=== PATIENT | male | born 1995 | race Asian ===

== ENCOUNTER 2017-05-15 20:14 | Emergency (ER) | payer OTHER ==
[~2017-05-15] VITALS: Ht 180.3 cm; Wt 127.3 kg
[2017-05-15 20:18] VITALS: BP 142/78; TEMP 98.5
[2017-05-15 22:15] VITALS: PULSE 93
== END 2017-05-15 22:15 | disposition home or self-care (01) ==
LOC: COL.ER 20:14
DX: S96.912A Strain of unspecified muscle and tendon at ankle and foot level, left foot, initial encounter (principal); X50.0XXA Overexertion from strenuous movement or load, initial encounter

== ENCOUNTER 2017-10-15 07:17 | Emergency (ER) | payer OTHER ==
[~2017-10-15] VITALS: Ht 180.3 cm; Wt 122.7 kg
[2017-10-15 07:28] VITALS: BP 142/93; TEMP 100.2
[2017-10-15] MEDS ORDERED: ZITHROMAX Z PA250 MG PO (08:12)
[2017-10-15 08:27] VITALS: PULSE 98
== END 2017-10-15 08:28 | disposition home or self-care (01) ==
LOC: COL.ER 07:17
DX: J06.9 Acute upper respiratory infection, unspecified (principal)

== ENCOUNTER 2017-10-19 16:37 | Emergency (ER) | payer OTHER ==
[~2017-10-19] VITALS: Ht 180.3 cm; Wt 127.3 kg
[~2017-10-19 16:37] MED LIST: ZITHROMAX Z PA250 MG PO
[2017-10-19 16:53] VITALS: BP 126/80; PULSE 85; TEMP 98.1
[2017-10-19] MEDS ORDERED: FLEXERIL 1010 MG/TAB PO (18:44)
== END 2017-10-19 19:13 | disposition home or self-care (01) ==
LOC: COL.ER 16:37
DX: S39.012A Strain of muscle, fascia and tendon of lower back, initial encounter (principal); J45.909 Unspecified asthma, uncomplicated; F17.210 Nicotine dependence, cigarettes, uncomplicated; Z90.89 Acquired absence of other organs; X50.0XXA Overexertion from strenuous movement or load, initial encounter
CPT/HCPCS: J1885; J2360

== ENCOUNTER 2018-05-10 12:49 | Emergency (ER) | payer OTHER ==
[~2018-05-10] VITALS: Ht 180.3 cm; Wt 144.4 kg
[~2018-05-10 12:49] MED LIST changes: +CEPHALEXIN500 M1 PO; +FLEXERIL 1010 MG/TAB PO
[2018-05-10 12:55] VITALS: BP 122/84; TEMP 98.9
[2018-05-10 13:44] VITALS: PULSE 88
== END 2018-05-10 13:45 | disposition home or self-care (01) ==
LOC: COL.ER 12:49
DX: J06.9 Acute upper respiratory infection, unspecified (principal)